=== PATIENT | male | born 1985 | race Caucasian/White ===

== ENCOUNTER 2021-04-27 09:37 | Outpatient (CLI) | payer OTHER, SELFPAY ==
[2021-04-27 09:53] VITALS: BP 118/73; PULSE 75; RESP 17; TEMP 36.8; O2SAT 98; BMI 23.7
[2021-04-27 10:44] VITALS: BP 116/65; PULSE 62; RESP 17; TEMP 36.8; O2SAT 99
[2021-04-27 11:37] VITALS: BP 106/66; PULSE 64; RESP 17; TEMP 36.8; O2SAT 99
[2021-04-27 11:41] VITALS: BP 106/66; PULSE 64; RESP 17; TEMP 36.8; O2SAT 99
== END 2021-04-27 09:38 | disposition home or self-care (01) ==
LOC: OPS 09:38
PROVIDERS: PCP Family Medicine; Visit Provider Nurse Practitioner Family
DX: U07.1 COVID-19 (principal)
CPT/HCPCS: 96365